=== PATIENT | female | born 1990 | race Caucasian/White ===

== ENCOUNTER 2018-06-12 16:26 | Emergency (ER) | payer OTHER ==
[~2018-06-12] VITALS: Ht 154.9 cm; Wt 64.0 kg
[~2018-06-12 16:26] MED LIST: GILTUSS TR TAB1 EACH PO; NASONEX17 GM NS
== END 2018-06-12 19:52 | disposition home or self-care (01) ==
LOC: ER 16:26
DX: O23.41 Unspecified infection of urinary tract in pregnancy, first trimester (principal); Z34.01 Encounter for supervision of normal first pregnancy, first trimester

== ENCOUNTER 2018-10-29 15:08 | Outpatient (CLI) | payer OTHER | END 2018-10-29 16:39 | disposition home or self-care (01) | LOC: OBS/DEL 15:08 | DX: O23.43 Unspecified infection of urinary tract in pregnancy, third trimester (principal); Z34.03 Encounter for supervision of normal first pregnancy, third trimester ==

== ENCOUNTER 2018-12-20 12:45 | Inpatient (IN) | payer OTHER ==
[~2018-12-20] VITALS: Ht 152.4 cm; Wt 81.6 kg
[2018-12-30] MEDS ORDERED: PRENATAL TABLE1 EAC1 PO (06:25)
[2019-01-01] MEDS ORDERED: HYDROCORTISO453.6 G1 RECTAL (09:23)
[2019-01-01] MEDS ORDERED: TYLENOL325 MG PO (09:23)
[2019-01-01] MEDS ORDERED: MAXFE CAPLET1 EACH PO (09:24)
== END 2019-01-01 16:07 | DRG 807 ==
LOC: OB/GYN 12-30 05:42 → LDR 12-30 05:42 → OB/GYN 12-30 13:40
PROVIDERS: ADMIT Specialist
PROC: 10E0XZZ Delivery of Products of Conception, External Approach (ICD-10-PCS; principal; 2018-12-30)
PROC: 4A0HXFZ Measurement of Products of Conception, Cardiac Rhythm, External Approach (ICD-10-PCS; 2018-12-30)
DX: O80 Encounter for full-term uncomplicated delivery (principal); Z37.0 Single live birth; Z3A.39 39 weeks gestation of pregnancy; D64.89 Other specified anemias